=== PATIENT | male | born 1995 | race Caucasian/White ===

== ENCOUNTER 2023-06-18 12:40 | Emergency (ER) | payer OTHER | END 2023-06-18 14:47 | disposition home or self-care (01) | LOC: JD.ED 12:40 | DX: S05.02XA Injury of conjunctiva and corneal abrasion without foreign body, left eye, initial encounter (principal); X58.XXXA Exposure to other specified factors, initial encounter; Y92.59 Other trade areas as the place of occurrence of the external cause | CPT/HCPCS: 99283 ==